=== PATIENT | male | born 1975 | race Caucasian/White ===

== ENCOUNTER 2017-05-11 13:52 | Emergency (ER) | payer SELFPAY ==
--- NOTE | 2017-05-11 14:12 | ED Physician Documentation ---
Upper Extremity Injury - HISTORIAN Historian: patient - HPI Stated Complaint: bucket fell on distal forearm 5 days ago Chief Complaint: Upper Extremity Injury Additional Information: continued to work, able to use but hurts Front/Back of Body, Lg (Nicholas): 1 - pain/swelling/area of trauma Onset: days ago (5) Where: work Severity: moderate Duration: persistent since (injury) Context: blow Associated Symptoms: denies: tingling, numbness distally, feeling loss, loss of power to arms Modifying Factors: pain on movement Further Comments: no - ROS CONST: no problems CVS/RESP: none NEURO: none MS/SKIN/LYMPH: none GI/: denies: problems urinating, nausea, vomiting - PAST HX Past History: Rt handed Immunizations: referred to PCP Allergies/Adverse Reactions: Allergies Allergy/AdvReac Type Severity Reaction Status Date / Time No Known Allergies Allergy Verified 05/11/17 14:12 Home Medications: Ambulatory Orders Medication Instructions Recorded NK [NK] 05/11/17 - SOCIAL HX Smoking History: cigarettes Alcohol Use: other (daily) Drug Use: none - FAMILY HX Family History: no significant history - VITAL SIGNS Vital Signs: Vital Signs Temp Pulse Resp BP Pulse Ox 98.5 F 68 20 127/66 97 05/11/17 13:52 05/11/17 13:52 05/11/17 13:52 05/11/17 13:52 05/11/17 13:52 - REVIEWED ASSESSMENTS Nursing Assessment Reviewed: Yes Vitals Reviewed: Yes Progress - Results/Orders Results/Orders: x-ray left forearm - Progress Progress: pt given narendra bandage in er Critical Care Note - Critical Care Note Total Time (mins): 0 ED Results Lab/Radiology - Lab Results Lab Results: none ordered - Radiology Radiology Impressions: x-ray neg for martina abnormality - Orders Orders: ED Orders Category Date Time Status Narendra Wrap Affected Extremity 1T Care 05/11/17 14:36 Ordered FOREARM 2 VIEWS [RAD] Stat Exams 05/11/17 Ordered Upper Extremity Injury Physic - Physical Exam General Appearance: alert, mild distress Hand: normal inspection, non-tender, no evidence of injury, normal ROM Wrist: normal inspection, non-tender, no evidence of injury, normal ROM Elbow/Forearm: soft tissue tenderness, swelling (distal left radial area, not involving the wrist, elbow unaffected) Shoulder: normal inspection, non-tender, no evidence of injury, normal ROM Neuro/Vascular/Tendon: no vascular compromise, motor nml, sensation nml Skin: warm,dry Head/ENT: nml inspection, pharynx nml Neck/Back: nml inspection, non-tender Resp/CVS: chest non-tender, breath sounds nml, heart sounds nml, no resp. distress, lungs clear Abdomen: non-tender Discharge Clincal Impression: Tendonitis Referrals: Primary Doctor,No [Primary Care Provider] - 2 Days Home Medications: Ambulatory Orders NK [NK] 05/11/17 Comments: discharged with narendra, ice, meloxicam 7.5 mg p.o. bid x 1 week Condition: Stable Disposition: 01 HOME, SELF-CARE Decision to Admit: NO Decision Time: 14:35
[2017-05-11 14:14] VITALS: BP 127/66
--- NOTE | 2017-05-11 15:18 | Diagnostic Imaging Report ---
MYRON BENSON [facility] [address] [facility].[address] [id number] Report Submission Date: May 11, 2017 2:34:28 PM CDT Patient Study Name: JERI STOKES Date: May 11, 2017 2:14:42 PM CDT Modality Type: CR Gender: M Description: UPPER EXTREMITY : 77 Institution: [facility] Physician: MYRON BENSON Left forearm -two views CLINICAL HISTORY: Injury about a week ago. Persistent pain. FINDINGS: Examination of the left forearm in AP and lateral views fails to demonstrate evidence of fracture, dislocation or other bone or joint pathology. Electronically signed on May 11, 2017 2:34:28 PM CDT by: Kilo BURDEN
== END 2017-05-11 14:52 | disposition home or self-care (01) ==
LOC: ED 13:52
DX: M77.9 Enthesopathy, unspecified (principal)
CPT/HCPCS: 73090; 99283